=== PATIENT | male | born 1995 | race African-American/Black ===

== ENCOUNTER → 2016-07-03 | Outpatient (REF) | LOC: WSOH 10:36 | DX: Z01.00 Encounter for examination of eyes and vision without abnormal findings (principal); Z01.10 Encounter for examination of ears and hearing without abnormal findings ==

== ENCOUNTER 2016-08-02 16:26 | Emergency (ER) | payer SELFPAY ==
[~2016-08-02] VITALS: Ht 182.9 cm; Wt 79.5 kg
[2016-08-02 16:27] VITALS: BP 161/92; PULSE 70; TEMP 98.6
== END 2016-08-02 16:49 | disposition left against medical advice (07) ==
LOC: COL.ER 16:26
DX: R31.9 Hematuria, unspecified (principal); Z53.21 Procedure and treatment not carried out due to patient leaving prior to being seen by health care provider